=== PATIENT | female | born 1955 | race Caucasian/White ===

== ENCOUNTER 2021-07-20 00:09 | Inpatient (IN) ==
[2021-07-20] MEDS ORDERED: SODIUM CHLORIDE 0.9% 1,000 ML IV STA (00:32)
[2021-07-20] MEDS ORDERED: PANTOPRAZOLE 40 MG VIAL IV STA (00:32)
[2021-07-20] MEDS ORDERED: ONDANSETRON 4 MG/2 ML VIAL IV ONE (00:32)
[2021-07-20 01:20] LABS: Basophils # 0.1 10*3/uL (0.0-0.2); Eosinophils # 0.1 10*3/uL (0.0-0.87); Eosinophils % 1.4 % (0.00-10.9); Hematocrit 29.6 VOL% (35.7-47.0); Hemoglobin 9.4 GM/DL (12.0-16.0); Immature Granulocytes % 0.6 %; Immature Granulocytes Absolute 0.03 #; Lymphocytes # 0.5 10*3/uL (1.4-4.0); Mean Corpuscular HGB Conc 31.8 GM/DL (32-36); Mean Platelet Volume 10.7 FL (9.6-12.0); Monocytes # 0.3 10*3/uL (0.11-0.8); Monocytes % 6.8 % (1.7-12.7); Neutrophils % 81.2 % (38.7-73.9); Platelet Count 85 T/CUMM (130-400); Red Blood Count 3.29 MC/CUMM (3.8-5.5); Red Cell Distribution Width 15.8 % (9.3-17.3)
[2021-07-20 01:22] LABS: Bacteria,Urine Occasional /HPF (Few); Hyaline Casts,Urine 8 /LPF (0-3); Mucus,Urine Occasional /LPF (Occasional); RBC,Urine 5 /HPF (0-4); Squamous Epithelial Cell,Urine Occasional /HPF (0-10)
[2021-07-20 01:24] LABS: Urine Appearance Clear (Clear); Urine Color Yellow (Yellow); Urine pH 5.5 (4.5-8.0)
[2021-07-20 01:25] LABS: Bilirubin,Urine Negative (Negative); Blood, Urine Trace mg/dL (Negative); Glucose,Urine (UA) Negative (Negative); Ketones,Urine Negative (Negative); Nitrite,Urine Negative (Negative); Protein,Urine Negative (Negative); Urine Specific Gravity 1.025 (1.001-1.035); Urine Urobilinogen 0.2 eU/dL (<2.0)
[2021-07-20 01:38] LABS: Albumin 3.2 G/DL (3.4-5.0); Bilirubin,Total 1.1 MG/DL (0.20-1.00); Calcium 8.4 MG/DL (8.5-10.1); Platelet Estimate Decreased; Potassium 3.7 MMOL/L (3.5-5.1); Total Protein 6.3 G/DL (6.4-8.2)
[2021-07-20] MEDS ORDERED: OCTREOTIDE 100 MCG/ML SYRINGE IV ONE (02:30)
[2021-07-20] MEDS ORDERED: ALBUTEROL 2.5 MG/3 ML NEB RESP TX PRN (02:38)
[2021-07-20] MEDS: LACTATED RINGERS 1,000 ML IV SCH ×2 (03:25→13:51)
[2021-07-20] MEDS ORDERED: GLUCAGON 1 MG VIAL IM PRN (03:30)
[2021-07-20] MEDS: PANTOPRAZOLE INJ 200 MG in SODIUM CHLORIDE 0.9% 250 ML IV SCH (03:30)
[2021-07-20] MEDS ORDERED: DEXTROSE 10% 250 ML BAG IV PRN (03:33)
[2021-07-20] MEDS: OCTREOTIDE 500 MCG in SODIUM CHLORIDE 0.9% 100 ML IV SCH ×3 (04:30→23:40)
[2021-07-20] MEDS ORDERED: ONDANSETRON 4 MG/2 ML VIAL IV SCH (05:32)
[2021-07-20] MEDS: INSULIN LISPRO 100 UNIT/ML SUBCUT SCH ×4 (06:32→23:30)
[2021-07-20] MEDS ORDERED: LEVOTHYROXINE 100 MCG VIAL IV SCH (07:00)
[2021-07-20] MEDS ORDERED: INSULIN LISPRO 100 UNIT/ML SUBCUT SCH (07:30)
[2021-07-20 07:51] LABS: INR 1.3; PT Patient Result 14.6 SECS (10.5-12.0)
[2021-07-20 08:15] LABS: Basophils % 1.1 % (0.0-0.8); Eosinophils # 0.1 10*3/uL (0.0-0.87); Eosinophils % 1.8 % (0.00-10.9); Hematocrit 25.2 VOL% (35.7-47.0); Hemoglobin 8.1 GM/DL (12.0-16.0); Immature Granulocytes % 0.4 %; Immature Granulocytes Absolute 0.01 #; Lymphocytes # 0.6 10*3/uL (1.4-4.0); Lymphocytes % 21.6 % (21.3-54.2); Mean Corpuscular HGB Conc 32.1 GM/DL (32-36); Mean Corpuscular Volume 88.4 FL (87-102); Mean Platelet Volume 10.7 FL (9.6-12.0); Monocytes # 0.3 10*3/uL (0.11-0.8); Monocytes % 9.2 % (1.7-12.7); Neutrophils % 65.9 % (38.7-73.9); Red Blood Count 2.85 MC/CUMM (3.8-5.5); Red Cell Distribution Width 15.6 % (9.3-17.3); White Blood Count 2.7 T/CUMM (4-12)
[2021-07-20 08:20] LABS: Platelet Count 66 T/CUMM (130-400)
[2021-07-20 09:20] LABS: Lymphocytes 36 % (20-55); Total Cells Counted 100
[2021-07-20 09:21] LABS: Platelet Estimate Adequate
[2021-07-20 09:22] LABS: Microcytosis Slight; Polychromasia Slight
[2021-07-20] MEDS ORDERED: ACETAMINOPHEN 325 MG/10.15 ML UDCUP PO PRN (09:46)
[2021-07-20] MEDS: ONDANSETRON 4 MG/2 ML VIAL IV PRN ×2 (09:59→14:08)
[2021-07-20] MEDS: metroNIDAZOLE INJ 500 MG/100 ML PREMIX IV SCH ×2 (10:54→18:15)
[2021-07-20] MEDS: LEVOFLOXACIN INJ 750 MG/150 ML PREMIX IV SCH (11:56)
[2021-07-20 14:34] LABS: Hematocrit 25.3 VOL% (35.7-47.0); Hemoglobin 8.2 GM/DL (12.0-16.0)
[2021-07-20] MEDS: PROMETHAZINE 25 MG/1 ML VIAL IM PRN (15:16)
[2021-07-20] MEDS: GABAPENTIN 300 MG CAPSULE PO SCH (21:00)
[2021-07-21] MEDS: PANTOPRAZOLE INJ 200 MG in SODIUM CHLORIDE 0.9% 250 ML IV SCH (03:21)
[2021-07-21] MEDS: metroNIDAZOLE INJ 500 MG/100 ML PREMIX IV SCH ×3 (03:31→21:10)
[2021-07-21] MEDS: LACTATED RINGERS 1,000 ML IV SCH ×3 (03:31→17:50)
[2021-07-21] MEDS: LEVOTHYROXINE 100 MCG TABLET PO SCH (06:08)
[2021-07-21] MEDS: INSULIN LISPRO 100 UNIT/ML SUBCUT SCH ×3 (06:13→17:50)
[2021-07-21 06:49] LABS: Albumin 2.9 G/DL (3.4-5.0); Bilirubin,Total 0.9 MG/DL (0.20-1.00); Calcium 8.2 MG/DL (8.5-10.1); Osmolality,Calculated 289.8 MOS/KG (273-304); Potassium 3.9 MMOL/L (3.5-5.1); Total Protein 5.7 G/DL (6.4-8.2)
[2021-07-21] MEDS: OCTREOTIDE 500 MCG in SODIUM CHLORIDE 0.9% 100 ML IV SCH ×3 (10:12→21:23)
[2021-07-21] MEDS ORDERED: DULAGLUTIDE SUBCUT SCH (11:00)
[2021-07-21] MEDS: LEVOFLOXACIN INJ 750 MG/150 ML PREMIX IV SCH (13:36)
[2021-07-21] MEDS ORDERED: LIDOCAINE 2% 5 ML VIAL ONE (14:34)
[2021-07-21] MEDS ORDERED: propofoL 200 MG/20 ML VIAL IV ONE (14:34)
[2021-07-21] MEDS ORDERED: ETOMIDATE 20 MG/10 ML VIAL IV ONE (14:34)
[2021-07-21] MEDS: ONDANSETRON 4 MG/2 ML VIAL IV PRN (15:39)
[2021-07-21] MEDS: GABAPENTIN 300 MG CAPSULE PO SCH ×2 (16:07→21:11)
[2021-07-21] MEDS: CYCLOBENZAPRINE 10 MG TABLET PO PRN (16:07)
[2021-07-21] MEDS: PARoxetine 20 MG TABLET PO SCH (16:07)
[2021-07-21] MEDS: CHOLECALCIFEROL 1,000 UNIT TABLET PO SCH (16:07)
[2021-07-22] MEDS: INSULIN LISPRO 100 UNIT/ML SUBCUT SCH ×4 (00:20→18:38)
[2021-07-22] MEDS: PANTOPRAZOLE INJ 200 MG in SODIUM CHLORIDE 0.9% 250 ML IV SCH ×2 (03:00→06:28)
[2021-07-22] MEDS: metroNIDAZOLE INJ 500 MG/100 ML PREMIX IV SCH ×3 (03:49→18:38)
[2021-07-22] MEDS: OCTREOTIDE 500 MCG in SODIUM CHLORIDE 0.9% 100 ML IV SCH ×2 (05:00→06:28)
[2021-07-22] MEDS: LACTATED RINGERS 1,000 ML IV SCH (05:25)
[2021-07-22 06:01] LABS: Basophils % 0.9 % (0.0-0.8); Eosinophils # 0.1 10*3/uL (0.0-0.87); Eosinophils % 2.6 % (0.00-10.9); Hematocrit 24.5 VOL% (35.7-47.0); Hemoglobin 7.7 GM/DL (12.0-16.0); Immature Granulocytes % 0.4 %; Immature Granulocytes Absolute 0.01 #; Lymphocytes # 0.5 10*3/uL (1.4-4.0); Lymphocytes % 21.4 % (21.3-54.2); Mean Corpuscular HGB Conc 31.4 GM/DL (32-36); Mean Corpuscular Volume 88.8 FL (87-102); Mean Platelet Volume 10.3 FL (9.6-12.0); Monocytes # 0.2 10*3/uL (0.11-0.8); Monocytes % 8.1 % (1.7-12.7); Neutrophils % 66.6 % (38.7-73.9); Platelet Count 67 T/CUMM (130-400); Red Blood Count 2.76 MC/CUMM (3.8-5.5); Red Cell Distribution Width 15.5 % (9.3-17.3); White Blood Count 2.3 T/CUMM (4-12)
[2021-07-22 06:19] LABS: Albumin 2.8 G/DL (3.4-5.0); Bilirubin,Total 0.8 MG/DL (0.20-1.00); Calcium 8.2 MG/DL (8.5-10.1); Osmolality,Calculated 286.8 MOS/KG (273-304); Potassium 3.4 MMOL/L (3.5-5.1); Total Protein 5.7 G/DL (6.4-8.2)
[2021-07-22 06:21] LABS: Hypochromia Slight; Microcytosis Slight; Platelet Estimate Decreased
[2021-07-22] MEDS: LEVOTHYROXINE 100 MCG TABLET PO SCH (06:21)
[2021-07-22] MEDS: POTASSIUM BICARB EFFERVESCENT 20 MEQ TAB.EFF PER TUBE PRN ×3 (08:51→16:02)
[2021-07-22] MEDS: PARoxetine 20 MG TABLET PO SCH (08:51)
[2021-07-22] MEDS: CYCLOBENZAPRINE 10 MG TABLET PO PRN (08:52)
[2021-07-22] MEDS: PROMETHAZINE 25 MG/1 ML VIAL IM PRN (08:52)
[2021-07-22] MEDS: GABAPENTIN 300 MG CAPSULE PO SCH ×2 (08:52→21:44)
[2021-07-22] MEDS: CHOLECALCIFEROL 1,000 UNIT TABLET PO SCH (08:55)
[2021-07-22] MEDS ORDERED: SODIUM CHLORIDE 0.9% 1,000 ML IV PRN (09:03)
[2021-07-22] MEDS: LEVOFLOXACIN INJ 750 MG/150 ML PREMIX IV SCH (11:56)
[2021-07-22 15:37] VITALS: BP 103/65
[2021-07-22] MEDS: PANTOPRAZOLE 40 MG VIAL IV SCH (21:44)
[2021-07-23] MEDS: INSULIN LISPRO 100 UNIT/ML SUBCUT SCH ×3 (00:21→11:30)
[2021-07-23] MEDS: metroNIDAZOLE INJ 500 MG/100 ML PREMIX IV SCH (03:50)
[2021-07-23 04:49] LABS: Calcium 8.3 MG/DL (8.5-10.1); Osmolality,Calculated 284.8 MOS/KG (273-304); Potassium 3.9 MMOL/L (3.5-5.1)
[2021-07-23 05:15] LABS: Basophils % 0.4 % (0.0-0.8); Eosinophils # 0.1 10*3/uL (0.0-0.87); Eosinophils % 3.3 % (0.00-10.9); Hematocrit 28.3 VOL% (35.7-47.0); Hemoglobin 9.2 GM/DL (12.0-16.0); Immature Granulocytes % 0.4 %; Immature Granulocytes Absolute 0.01 #; Lymphocytes # 0.5 10*3/uL (1.4-4.0); Lymphocytes % 19.3 % (21.3-54.2); Mean Corpuscular HGB Conc 32.5 GM/DL (32-36); Mean Corpuscular Volume 88.7 FL (87-102); Monocytes # 0.2 10*3/uL (0.11-0.8); Monocytes % 8.1 % (1.7-12.7); Neutrophils % 68.5 % (38.7-73.9); Platelet Count 68 T/CUMM (130-400); Red Blood Count 3.19 MC/CUMM (3.8-5.5); Red Cell Distribution Width 15.1 % (9.3-17.3); White Blood Count 2.7 T/CUMM (4-12)
[2021-07-23 05:18] LABS: Hypochromia Slight; Microcytosis Slight; Platelet Estimate Decreased
[2021-07-23] MEDS: LEVOTHYROXINE 100 MCG TABLET PO SCH (06:22)
[2021-07-23] MEDS: PARoxetine 20 MG TABLET PO SCH (08:46)
[2021-07-23] MEDS: GABAPENTIN 300 MG CAPSULE PO SCH (08:46)
[2021-07-23] MEDS: PANTOPRAZOLE 40 MG VIAL IV SCH (08:46)
[2021-07-23] MEDS: CHOLECALCIFEROL 1,000 UNIT TABLET PO SCH (08:46)
== END 2021-07-23 02:30 | disposition home or self-care (01) | DRG 432 ==
LOC: N.ED 00:09 → N.EDINP 02:37 → SUATTDRO 02:37 → N.CC 03:43
PROVIDERS: ADMIT Family Medicine; ATTEND Internal Medicine
PROC: EGDWEBL (ICD-10-PCS; 2021-07-21 12:20)

== ENCOUNTER 2021-07-31 01:05 | Inpatient (IN) ==
[2021-07-31] MEDS ORDERED: PANTOPRAZOLE 40 MG VIAL IV STA (01:25)
[2021-07-31] MEDS ORDERED: SODIUM CHLORIDE 0.9% 1,000 ML IV STA (01:25)
[2021-07-31] MEDS ORDERED: OCTREOTIDE 100 MCG/ML SYRINGE IV STA (01:40)
[2021-07-31 01:42] LABS: Basophils % 0.5 % (0.0-0.8); Eosinophils # 0.1 10*3/uL (0.0-0.87); Eosinophils % 1.9 % (0.00-10.9); Hematocrit 24.2 VOL% (35.7-47.0); Hemoglobin 7.7 GM/DL (12.0-16.0); Immature Granulocytes % 0.4 %; Immature Granulocytes Absolute 0.03 #; Lymphocytes # 0.7 10*3/uL (1.4-4.0); Mean Corpuscular HGB Conc 31.8 GM/DL (32-36); Mean Corpuscular Volume 89.6 FL (87-102); Mean Platelet Volume 11.1 FL (9.6-12.0); Monocytes # 0.7 10*3/uL (0.11-0.8); Monocytes % 9.5 % (1.7-12.7); Neutrophils % 78.7 % (38.7-73.9); Platelet Count 118 T/CUMM (130-400); Red Cell Distribution Width 15.6 % (9.3-17.3); White Blood Count 7.5 T/CUMM (4-12)
[2021-07-31 01:57] LABS: Albumin 2.8 G/DL (3.4-5.0); Bilirubin,Total 0.6 MG/DL (0.20-1.00); Calcium 7.8 MG/DL (8.5-10.1); Osmolality,Calculated 287.1 MOS/KG (273-304); Potassium 3.6 MMOL/L (3.5-5.1); Total Protein 5.7 G/DL (6.4-8.2)
[2021-07-31] MEDS ORDERED: SODIUM CHLORIDE 0.9% 1,000 ML IV PRN ×4 (01:57→17:36)
[2021-07-31] MEDS ORDERED: diphenhydrAMINE 50 MG/1 ML VIAL IV PRN (01:57)
[2021-07-31] MEDS ORDERED: FUROSEMIDE 40 MG/4 ML VIAL IV PRN (02:01)
[2021-07-31] MEDS ORDERED: ALBUTEROL 2.5 MG/3 ML NEB RESP TX PRN (02:20)
[2021-07-31] MEDS ORDERED: ONDANSETRON 4 MG/2 ML VIAL IV PRN (02:20)
[2021-07-31] MEDS ORDERED: NOREPINEPHRINE 8 MG in SODIUM CHLORIDE 0.9% 242 ML IV PRN (02:20)
[2021-07-31 03:06] LABS: PT Patient Result 11.5 SECS (10.5-12.0)
[2021-07-31] MEDS ORDERED: GLUCAGON 1 MG VIAL IM PRN (03:10)
[2021-07-31] MEDS: OCTREOTIDE 500 MCG in SODIUM CHLORIDE 0.9% 100 ML IV SCH ×2 (03:20→18:08)
[2021-07-31] MEDS: SODIUM CHLORIDE 0.9% 1,000 ML IV SCH ×4 (03:21→23:05)
[2021-07-31] MEDS ORDERED: DEXTROSE 10% 250 ML BAG IV PRN (03:37)
[2021-07-31] MEDS: PANTOPRAZOLE INJ 200 MG in SODIUM CHLORIDE 0.9% 250 ML IV SCH (04:31)
[2021-07-31 04:39] LABS: Partial Thromboplastin Time 22.8 SECS (23.8-32.1)
[2021-07-31] MEDS ORDERED: INSULIN LISPRO 100 UNIT/ML SUBCUT SCH (06:00)
[2021-07-31] MEDS ORDERED: [UNRECOGNIZED DRUG - OTHER] INTRAVARIC ONE (08:16)
[2021-07-31] MEDS: LACTATED RINGERS 1,000 ML IV SCH (11:21)
[2021-07-31 11:24] LABS: Hematocrit 30.3 VOL% (35.7-47.0); Hemoglobin 9.9 GM/DL (12.0-16.0)
[2021-07-31] MEDS: INSULIN LISPRO 100 UNIT/ML SUBCUT SCH ×3 (11:33→20:27)
[2021-07-31] MEDS ORDERED: LIDOCAINE 2% 5 ML VIAL ONE (13:36)
[2021-07-31] MEDS ORDERED: propofoL 200 MG/20 ML VIAL IV ONE ×2 (13:36→13:55)
[2021-07-31] MEDS ORDERED: MIDAZOLAM 2 MG/2 ML VIAL ONE ×3 (14:22→18:07)
[2021-07-31 14:43] LABS: ABG Base Excess -8.4 MMOL/L (-2.5-2.5); ABG HCO3 17.6 MMOL/L (20-26); ABG PCO2 56.1 MM HG (35-48); ABG TCO2 19.5 MMOL/L (23-27); Glucose Heart Surgery 233 MG/DL (74-106); Hematocrit Heart Surgery 26.5 PERCENT (37-47); Hemoglobin Heart Surgery 8.5 G/DL (12.0-16.0); Ionized Calcium Arterial 1.29 MMOL/L (1.21-1.46); PCO2 Patient Temp Arterial 56.1 MMHG; PH Patient Temp Arterial 7.167; Patient Temperature 37 CELCIUS; Potassium Heart/CVR 3.3 MMOL/L (3.5-5.1); Sodium Heart/CVR 142 MMOL/L (135-145)
[2021-07-31] MEDS ORDERED: ROCURONIUM 50 MG/5 ML VIAL IV ONE ×2 (14:44→18:06)
[2021-07-31] MEDS ORDERED: SUCCINYLCHOLINE 200 MG/10 ML VIAL ONE (14:44)
[2021-07-31] MEDS ORDERED: EPINEPHrine 1 MG/ML VIAL ONE (14:44)
[2021-07-31] MEDS ORDERED: SODIUM CHLORIDE 0.9% 100 ML IV ONE (14:44)
[2021-07-31] MEDS ORDERED: CALCIUM CHLORIDE 1,000 MG/10 ML VIAL IV ONE ×2 (14:44→15:00)
[2021-07-31] MEDS ORDERED: SEVOFLURANE 1 UNIT/15 MINUTE INH ONE (14:44)
[2021-07-31] MEDS ORDERED: PHENYLEPHRINE 1 MG/10 ML SYRINGE IV ONE (14:44)
[2021-07-31 14:46] LABS: ABG PH 7.167 (7.35-7.45)
[2021-07-31 14:53] LABS: Basophils % 0.4 % (0.0-0.8); Eosinophils # 0.1 10*3/uL (0.0-0.87); Eosinophils % 1.5 % (0.00-10.9); Hemoglobin 8.4 GM/DL (12.0-16.0); Immature Granulocytes % 0.7 %; Immature Granulocytes Absolute 0.05 #; Lymphocytes # 2.2 10*3/uL (1.4-4.0); Lymphocytes % 32.4 % (21.3-54.2); Mean Corpuscular HGB Conc 31.1 GM/DL (32-36); Mean Corpuscular Volume 93.1 FL (87-102); Mean Platelet Volume 10.9 FL (9.6-12.0); Monocytes # 0.5 10*3/uL (0.11-0.8); Monocytes % 7.5 % (1.7-12.7); Neutrophils % 57.5 % (38.7-73.9); Platelet Count 97 T/CUMM (130-400); Red Cell Distribution Width 15.4 % (9.3-17.3); White Blood Count 6.7 T/CUMM (4-12)
[2021-07-31] MEDS ORDERED: HEPARIN/NACL 0.9% 2 UNITS/ML 2,000 UNIT/1,000 ML BAG IV ONE (14:54)
[2021-07-31 14:58] LABS: INR 1.4; PT Patient Result 15.1 SECS (10.5-12.0)
[2021-07-31] MEDS ORDERED: SODIUM BICARBONATE 50 MEQ/50 ML VIAL IV ONE (15:00)
[2021-07-31] MEDS ORDERED: PHENYLEPHRINE DRIP 0 MG/0 ML PREMIX IV ONE (15:01)
[2021-07-31] MEDS ORDERED: TRANEXAMIC ACID 1,000 MG/10 ML VIAL ONE ×2 (15:11→15:15)
[2021-07-31 15:14] LABS: Calcium 8.4 MG/DL (8.5-10.1); Potassium 3.6 MMOL/L (3.5-5.1)
[2021-07-31 15:16] LABS: Albumin 1.6 G/DL (3.4-5.0); Bilirubin,Total 0.4 MG/DL (0.20-1.00); Calcium 9.7 MG/DL (8.5-10.1); Osmolality,Calculated 303.1 MOS/KG (273-304); Potassium 3.7 MMOL/L (3.5-5.1); Total Protein 3.3 G/DL (6.4-8.2)
[2021-07-31] MEDS ORDERED: LEVOFLOXACIN INJ 500 MG/100 ML PREMIX IV ONE (15:42)
[2021-07-31] MEDS ORDERED: FUROSEMIDE 20 MG/2 ML VIAL ONE (16:23)
[2021-07-31 17:47] LABS: Bilirubin,Urine Negative (Negative); Blood, Urine Negative (Negative); Glucose,Urine (UA) Negative (Negative); Ketones,Urine Negative (Negative); Nitrite,Urine Negative (Negative); Protein,Urine Negative (Negative); Urine Appearance Clear (Clear); Urine Color Yellow (Yellow); Urine Specific Gravity 1.025 (1.001-1.035); Urine Urobilinogen 0.2 eU/dL (<2.0); Urine pH 5.5 (4.5-8.0)
[2021-07-31 17:48] LABS: ABG Base Excess -1.7 MMOL/L (-2.5-2.5); ABG Oxygen Saturation 99.5 % (95-100); ABG PCO2 45.7 MM HG (35-48); ABG PH 7.335 (7.35-7.45)
[2021-07-31 17:49] LABS: Hyaline Casts,Urine 7 /LPF (0-3); Mucus,Urine Occasional /LPF (Occasional); RBC,Urine 1 /HPF (0-4); Squamous Epithelial Cell,Urine Occasional /HPF (0-10)
[2021-07-31 17:50] LABS: Basophils % 0.2 % (0.0-0.8); Eosinophils % 0.5 % (0.00-10.9); Hematocrit 33.7 VOL% (35.7-47.0); Hemoglobin 11.1 GM/DL (12.0-16.0); Immature Granulocytes % 0.7 %; Immature Granulocytes Absolute 0.03 #; Lymphocytes # 0.2 10*3/uL (1.4-4.0); Lymphocytes % 4.9 % (21.3-54.2); Mean Corpuscular HGB Conc 32.9 GM/DL (32-36); Mean Corpuscular Volume 88.5 FL (87-102); Mean Platelet Volume 10.5 FL (9.6-12.0); Monocytes # 0.2 10*3/uL (0.11-0.8); Monocytes % 4.4 % (1.7-12.7); Neutrophils % 89.3 % (38.7-73.9); Platelet Count 82 T/CUMM (130-400); Red Blood Count 3.81 MC/CUMM (3.8-5.5); White Blood Count 4.3 T/CUMM (4-12)
[2021-07-31] MEDS ORDERED: MIDAZOLAM 10 MG/2 ML VIAL ONE (18:07)
[2021-07-31] MEDS ORDERED: fentaNYL 100 MCG/2 ML VIAL ONE ×2 (18:07)
[2021-07-31 18:11] LABS: Band Neutrophils 10 % (0-10); Lymphocytes 1 % (20-55); Total Cells Counted 100
[2021-07-31 18:12] LABS: Platelet Estimate Adequate
[2021-07-31 18:15] LABS: Albumin 2.5 G/DL (3.4-5.0); Bilirubin,Total 1.2 MG/DL (0.20-1.00); Calcium 7.6 MG/DL (8.5-10.1); Osmolality,Calculated 297.4 MOS/KG (273-304); Potassium 4.7 MMOL/L (3.5-5.1); Total Protein 4.8 G/DL (6.4-8.2)
[2021-07-31] MEDS ORDERED: MAGNESIUM SULF RIDER 4 GM/100 ML PREMIX IV PRN (18:15)
[2021-07-31 18:18] LABS: INR 1.2; PT Patient Result 12.8 SECS (10.5-12.0); Partial Thromboplastin Time 27.9 SECS (23.8-32.1)
[2021-07-31] MEDS: MAGNESIUM SULF RIDER 2 GM/50 ML PREMIX IV PRN (18:20)
[2021-07-31] MEDS ORDERED: CALCIUM GLUCONATE RIDER 2,000 MG/100 ML PREMIX IV ONE (18:47)
[2021-07-31] MEDS ORDERED: CALCIUM GLUCONATE RIDER 1,000 MG/50 ML PREMIX IV ONE (18:49)
[2021-07-31 21:44] LABS: Hematocrit 36.8 VOL% (35.7-47.0); Hemoglobin 12.2 GM/DL (12.0-16.0)
[2021-08-01] MEDS: OCTREOTIDE 500 MCG in SODIUM CHLORIDE 0.9% 100 ML IV SCH ×3 (03:15→13:15)
[2021-08-01 03:22] LABS: ABG Base Excess 1.6 MMOL/L (-2.5-2.5); ABG HCO3 25.9 MMOL/L (20-26); ABG Oxygen Saturation 99.3 % (95-100); ABG PH 7.393 (7.35-7.45); ABG TCO2 24.1 MMOL/L (23-27)
[2021-08-01 03:36] LABS: Basophils % 0.1 % (0.0-0.8); Eosinophils % 0.1 % (0.00-10.9); Hematocrit 34.1 VOL% (35.7-47.0); Hemoglobin 11.2 GM/DL (12.0-16.0); Immature Granulocytes % 0.6 %; Immature Granulocytes Absolute 0.05 #; Lymphocytes # 0.3 10*3/uL (1.4-4.0); Lymphocytes % 3.5 % (21.3-54.2); Mean Corpuscular HGB Conc 32.8 GM/DL (32-36); Mean Corpuscular Volume 88.6 FL (87-102); Mean Platelet Volume 10.4 FL (9.6-12.0); Monocytes # 0.5 10*3/uL (0.11-0.8); Monocytes % 5.5 % (1.7-12.7); Neutrophils % 90.2 % (38.7-73.9); Platelet Count 85 T/CUMM (130-400); Red Blood Count 3.85 MC/CUMM (3.8-5.5); Red Cell Distribution Width 15.5 % (9.3-17.3); White Blood Count 8.5 T/CUMM (4-12)
[2021-08-01 03:44] LABS: Calcium 7.1 MG/DL (8.5-10.1); Osmolality,Calculated 298.3 MOS/KG (273-304); Potassium 4.1 MMOL/L (3.5-5.1)
[2021-08-01 03:45] LABS: Albumin 2.4 G/DL (3.4-5.0); Bilirubin,Total 1.7 MG/DL (0.20-1.00); Calcium 7.4 MG/DL (8.5-10.1); Osmolality,Calculated 295.6 MOS/KG (273-304); Total Protein 4.8 G/DL (6.4-8.2)
[2021-08-01 03:56] LABS: Band Neutrophils 5 % (0-10); Lymphocytes 7 % (20-55); Total Cells Counted 100
[2021-08-01 04:04] LABS: Microcytosis Slight; Platelet Estimate Decreased
[2021-08-01] MEDS: PANTOPRAZOLE INJ 200 MG in SODIUM CHLORIDE 0.9% 250 ML IV SCH (05:25)
[2021-08-01 05:49] LABS: INR 1.2
[2021-08-01] MEDS: SODIUM CHLORIDE 0.9% 1,000 ML IV SCH ×2 (06:10→18:50)
[2021-08-01] MEDS ORDERED: FUROSEMIDE 40 MG/4 ML VIAL IV ONE (08:25)
[2021-08-01] MEDS: LACTATED RINGERS 1,000 ML IV SCH (09:45)
[2021-08-01] MEDS: INSULIN LISPRO 100 UNIT/ML SUBCUT SCH ×3 (12:22→23:22)
[2021-08-01 12:39] LABS: Hematocrit 34.7 VOL% (35.7-47.0); Hemoglobin 11.5 GM/DL (12.0-16.0)
[2021-08-01 18:44] LABS: Hematocrit 31.2 VOL% (35.7-47.0); Hemoglobin 10.3 GM/DL (12.0-16.0)
[2021-08-01] MEDS: FUROSEMIDE 40 MG/4 ML VIAL IV SCH (21:41)
[2021-08-02 00:26] LABS: Hematocrit 31.9 VOL% (35.7-47.0); Hemoglobin 10.6 GM/DL (12.0-16.0)
[2021-08-02] MEDS: OCTREOTIDE 500 MCG in SODIUM CHLORIDE 0.9% 100 ML IV SCH ×4 (02:45→23:39)
[2021-08-02] MEDS: PANTOPRAZOLE INJ 200 MG in SODIUM CHLORIDE 0.9% 250 ML IV SCH ×2 (03:00→09:40)
[2021-08-02 03:23] LABS: Basophils % 0.4 % (0.0-0.8); Eosinophils # 0.1 10*3/uL (0.0-0.87); Eosinophils % 1.2 % (0.00-10.9); Hematocrit 30.9 VOL% (35.7-47.0); Hemoglobin 10.2 GM/DL (12.0-16.0); Immature Granulocytes % 0.7 %; Immature Granulocytes Absolute 0.05 #; Lymphocytes # 0.5 10*3/uL (1.4-4.0); Lymphocytes % 7.4 % (21.3-54.2); Mean Corpuscular Volume 88.5 FL (87-102); Mean Platelet Volume 10.2 FL (9.6-12.0); Monocytes # 0.5 10*3/uL (0.11-0.8); Monocytes % 7.2 % (1.7-12.7); Neutrophils % 83.1 % (38.7-73.9); Platelet Count 67 T/CUMM (130-400); Red Blood Count 3.49 MC/CUMM (3.8-5.5); Red Cell Distribution Width 15.9 % (9.3-17.3); White Blood Count 6.8 T/CUMM (4-12)
[2021-08-02 03:38] LABS: Albumin 2.5 G/DL (3.4-5.0); Bilirubin,Total 1.7 MG/DL (0.20-1.00); Calcium 7.3 MG/DL (8.5-10.1); Osmolality,Calculated 297.4 MOS/KG (273-304); Potassium 3.3 MMOL/L (3.5-5.1); Total Protein 4.9 G/DL (6.4-8.2)
[2021-08-02 03:45] LABS: Platelet Estimate Decreased
[2021-08-02 03:50] LABS: Calcium 7.3 MG/DL (8.5-10.1); Osmolality,Calculated 297.3 MOS/KG (273-304); Potassium 3.3 MMOL/L (3.5-5.1)
[2021-08-02] MEDS: POTASSIUM CHLORIDE RIDER 20 MEQ/100 ML PREMIX IV PRN ×2 (04:48→06:44)
[2021-08-02] MEDS: INSULIN LISPRO 100 UNIT/ML SUBCUT SCH ×4 (05:34→23:55)
[2021-08-02 06:00] LABS: ABG Base Excess 6.3 MMOL/L (-2.5-2.5); ABG HCO3 30.2 MMOL/L (20-26); ABG Oxygen Saturation 98.6 % (95-100); ABG PCO2 41.3 MM HG (35-48); ABG PH 7.476 (7.35-7.45); ABG TCO2 27.6 MMOL/L (23-27)
[2021-08-02] MEDS: MAGNESIUM SULF RIDER 2 GM/50 ML PREMIX IV PRN (06:02)
[2021-08-02] MEDS: FUROSEMIDE 40 MG/4 ML VIAL IV SCH (08:00)
[2021-08-02] MEDS ORDERED: ALBUTEROL/IPRATROPIUM 3 ML NEB RESP TX ONE (08:50)
[2021-08-02] MEDS: LACTATED RINGERS 1,000 ML IV SCH (10:54)
[2021-08-02] MEDS: SODIUM CHLORIDE 0.9% 1,000 ML IV SCH (11:19)
[2021-08-02 11:51] LABS: Hematocrit 32.2 VOL% (35.7-47.0); Hemoglobin 10.4 GM/DL (12.0-16.0)
[2021-08-02] MEDS ORDERED: FUROSEMIDE 40 MG/4 ML VIAL IV ONE (17:15)
[2021-08-02 17:20] LABS: ABG Base Excess 6.4 MMOL/L (-2.5-2.5); ABG HCO3 30.2 MMOL/L (20-26); ABG Oxygen Saturation 94.3 % (95-100); ABG PCO2 47.8 MM HG (35-48); ABG PO2 71.9 MM HG (80-95); ABG TCO2 28.9 MMOL/L (23-27)
[2021-08-02] MEDS: LACTULOSE 320 GM/480 ML BOTTLE RECTAL SCH (20:12)
[2021-08-02] MEDS: VITAMIN E 400 UNIT CAPSULE PO SCH (20:32)
[2021-08-02 23:10] LABS: Hematocrit 29.4 VOL% (35.7-47.0); Hemoglobin 9.6 GM/DL (12.0-16.0)
[2021-08-03] MEDS: OCTREOTIDE 500 MCG in SODIUM CHLORIDE 0.9% 100 ML IV SCH (01:00)
[2021-08-03] MEDS: LACTULOSE 320 GM/480 ML BOTTLE RECTAL SCH ×4 (01:50→20:09)
[2021-08-03] MEDS: PANTOPRAZOLE INJ 200 MG in SODIUM CHLORIDE 0.9% 250 ML IV SCH ×2 (03:00→10:55)
[2021-08-03 04:09] LABS: Basophils % 0.2 % (0.0-0.8); Eosinophils % 0.4 % (0.00-10.9); Hematocrit 29.6 VOL% (35.7-47.0); Hemoglobin 9.6 GM/DL (12.0-16.0); Immature Granulocytes % 0.7 %; Immature Granulocytes Absolute 0.04 #; Lymphocytes # 0.4 10*3/uL (1.4-4.0); Mean Corpuscular HGB Conc 32.4 GM/DL (32-36); Mean Corpuscular Volume 90.2 FL (87-102); Mean Platelet Volume 10.9 FL (9.6-12.0); Monocytes # 0.3 10*3/uL (0.11-0.8); Monocytes % 5.3 % (1.7-12.7); Neutrophils % 86.4 % (38.7-73.9); Platelet Count 61 T/CUMM (130-400); Red Blood Count 3.28 MC/CUMM (3.8-5.5); Red Cell Distribution Width 15.6 % (9.3-17.3); White Blood Count 5.6 T/CUMM (4-12)
[2021-08-03 04:13] LABS: Arterial Base Excess iSTAT 8 MMOL/L (-2.5-2.5); Arterial Bicarbonate iSTAT 32.7 MMOL/L (20-26); Arterial O2 Saturation iSTAT 85 % (95-100); Arterial PCO2 iSTAT 48 MM HG (35-48); Arterial PO2 iSTAT 49 MM HG (80-95); Arterial Total CO2 iSTAT 34 MMO/L (23-27); Arterial pH iSTAT 7.443 (7.35-7.45)
[2021-08-03 04:26] LABS: Calcium 7.7 MG/DL (8.5-10.1); Osmolality,Calculated 306.7 MOS/KG (273-304); Potassium 3.2 MMOL/L (3.5-5.1)
[2021-08-03 04:30] LABS: Platelet Estimate Decreased
[2021-08-03] MEDS: POTASSIUM CHLORIDE RIDER 20 MEQ/100 ML PREMIX IV PRN ×2 (05:28→08:31)
[2021-08-03] MEDS: INSULIN LISPRO 100 UNIT/ML SUBCUT SCH ×3 (05:58→18:05)
[2021-08-03] MEDS ORDERED: FUROSEMIDE 40 MG/4 ML VIAL IM SCH (08:00)
[2021-08-03] MEDS: SODIUM CHLORIDE 0.9% 1,000 ML IV SCH ×2 (08:30→17:27)
[2021-08-03] MEDS: ALBUTEROL/IPRATROPIUM 3 ML NEB RESP TX SCH ×3 (08:30→20:11)
[2021-08-03] MEDS: PIPERACILLIN/TAZOBACTAM 3,375 MG in SODIUM CHLORIDE 0.9% 100 ML IV SCH ×2 (08:32→17:27)
[2021-08-03] MEDS: POTASSIUM CHLORIDE RIDER 10 MEQ/100 ML PREMIX IV SCH ×2 (08:32→09:40)
[2021-08-03] MEDS: VITAMIN E 400 UNIT CAPSULE PO SCH ×2 (08:41→20:09)
[2021-08-03] MEDS: LACTATED RINGERS 1,000 ML IV SCH (08:41)
[2021-08-03] MEDS ORDERED: methylPREDNISolone SOD SUC 40 MG/1 ML VIAL IV SCH (09:00)
[2021-08-03] MEDS ORDERED: FUROSEMIDE 40 MG/4 ML VIAL IV SCH (09:00)
[2021-08-03 09:31] LABS: Hematocrit 33.5 VOL% (35.7-47.0); Hemoglobin 10.9 GM/DL (12.0-16.0)
[2021-08-03] MEDS: methylPREDNISolone SOD SUC 40 MG/1 ML VIAL IV SCH ×2 (09:40→20:09)
[2021-08-03 17:27] LABS: Arterial Base Excess iSTAT 9 MMOL/L (-2.5-2.5); Arterial Bicarbonate iSTAT 34.1 MMOL/L (20-26); Arterial O2 Saturation iSTAT 94 % (95-100); Arterial PCO2 iSTAT 49 MM HG (35-48); Arterial PO2 iSTAT 67 MM HG (80-95); Arterial Total CO2 iSTAT 36 MMO/L (23-27); Arterial pH iSTAT 7.452 (7.35-7.45)
[2021-08-03 19:33] LABS: Hematocrit 29.6 VOL% (35.7-47.0); Hemoglobin 9.5 GM/DL (12.0-16.0)
[2021-08-04] MEDS: ALBUTEROL/IPRATROPIUM 3 ML NEB RESP TX SCH ×4 (00:45→20:13)
[2021-08-04] MEDS: INSULIN LISPRO 100 UNIT/ML SUBCUT SCH ×4 (00:48→18:43)
[2021-08-04] MEDS: PIPERACILLIN/TAZOBACTAM 3,375 MG in SODIUM CHLORIDE 0.9% 100 ML IV SCH (00:48)
[2021-08-04] MEDS: LACTULOSE 320 GM/480 ML BOTTLE RECTAL SCH ×3 (02:22→21:03)
[2021-08-04] MEDS: PANTOPRAZOLE INJ 200 MG in SODIUM CHLORIDE 0.9% 250 ML IV SCH (03:00)
[2021-08-04 04:59] LABS: Basophils % 0.2 % (0.0-0.8); Hemoglobin 9.7 GM/DL (12.0-16.0); Immature Granulocytes % 1.5 %; Immature Granulocytes Absolute 0.09 #; Lymphocytes # 0.3 10*3/uL (1.4-4.0); Lymphocytes % 5.1 % (21.3-54.2); Mean Corpuscular HGB Conc 31.3 GM/DL (32-36); Mean Corpuscular Volume 93.9 FL (87-102); Mean Platelet Volume 10.8 FL (9.6-12.0); Monocytes # 0.2 10*3/uL (0.11-0.8); Monocytes % 4.1 % (1.7-12.7); Neutrophils % 89.1 % (38.7-73.9); Platelet Count 70 T/CUMM (130-400); Red Cell Distribution Width 15.7 % (9.3-17.3); White Blood Count 5.9 T/CUMM (4-12)
[2021-08-04 05:16] LABS: Potassium 2.9 MMOL/L (3.5-5.1)
[2021-08-04 05:23] LABS: Osmolality,Calculated 319.9 MOS/KG (273-304)
[2021-08-04] MEDS: POTASSIUM CHLORIDE RIDER 20 MEQ/100 ML PREMIX IV PRN ×3 (05:40→17:22)
[2021-08-04] MEDS ORDERED: CEFEPIME 1,000 MG in SODIUM CHLORIDE 0.9% 100 ML IV SCH (08:00)
[2021-08-04] MEDS: PANTOPRAZOLE 40 MG VIAL IV SCH ×2 (09:01→20:35)
[2021-08-04] MEDS: CEFEPIME 1,000 MG in SODIUM CHLORIDE 0.9% 100 ML IV SCH ×3 (09:01→20:34)
[2021-08-04] MEDS: SODIUM CHLOR 0.45% KCL 20 MEQ 20 MEQ/1,000 ML BAG IV SCH (09:01)
[2021-08-04] MEDS: methylPREDNISolone SOD SUC 40 MG/1 ML VIAL IV SCH ×2 (09:12→20:35)
[2021-08-04] MEDS: VITAMIN E 400 UNIT CAPSULE PO SCH ×2 (09:14→21:00)
[2021-08-04 14:02] LABS: Calcium 8.1 MG/DL (8.5-10.1); Osmolality,Calculated 321.7 MOS/KG (273-304); Potassium 3.4 MMOL/L (3.5-5.1)
[2021-08-04] MEDS: ZIPRASIDONE 20 MG/1 ML VIAL IM PRN (17:20)
[2021-08-04] MEDS: SODIUM CHLORIDE 0.9% 1,000 ML IV SCH (18:58)
[2021-08-05] MEDS: ALBUTEROL/IPRATROPIUM 3 ML NEB RESP TX SCH ×4 (00:15→19:56)
[2021-08-05] MEDS: POTASSIUM CHLORIDE RIDER 10 MEQ/100 ML PREMIX IV PRN (00:32)
[2021-08-05] MEDS: INSULIN LISPRO 100 UNIT/ML SUBCUT SCH ×4 (00:37→18:00)
[2021-08-05] MEDS: CEFEPIME 1,000 MG in SODIUM CHLORIDE 0.9% 100 ML IV SCH ×4 (02:45→21:03)
[2021-08-05] MEDS: SODIUM CHLOR 0.45% KCL 20 MEQ 20 MEQ/1,000 ML BAG IV SCH ×2 (04:00→07:40)
[2021-08-05] MEDS: ZIPRASIDONE 20 MG/1 ML VIAL IM PRN ×2 (04:38→15:30)
[2021-08-05 06:07] LABS: Basophils % 0.2 % (0.0-0.8); Hematocrit 33.1 VOL% (35.7-47.0); Hemoglobin 10.1 GM/DL (12.0-16.0); Immature Granulocytes % 1.5 %; Immature Granulocytes Absolute 0.07 #; Lymphocytes # 0.2 10*3/uL (1.4-4.0); Mean Corpuscular HGB Conc 30.5 GM/DL (32-36); Mean Corpuscular Volume 96.2 FL (87-102); Mean Platelet Volume 11.2 FL (9.6-12.0); Monocytes # 0.2 10*3/uL (0.11-0.8); Neutrophils % 88.3 % (38.7-73.9); Platelet Count 69 T/CUMM (130-400); Red Blood Count 3.44 MC/CUMM (3.8-5.5); Red Cell Distribution Width 16.3 % (9.3-17.3); White Blood Count 4.6 T/CUMM (4-12)
[2021-08-05 06:15] LABS: Albumin 2.4 G/DL (3.4-5.0); Bilirubin,Total 1.8 MG/DL (0.20-1.00); Calcium 8.5 MG/DL (8.5-10.1); Osmolality,Calculated 321.7 MOS/KG (273-304); Potassium 3.9 MMOL/L (3.5-5.1); Total Protein 5.4 G/DL (6.4-8.2)
[2021-08-05 06:34] LABS: Platelet Estimate Decreased
[2021-08-05] MEDS: POTASSIUM CHLORIDE RIDER 20 MEQ/100 ML PREMIX IV PRN (07:39)
[2021-08-05] MEDS: methylPREDNISolone SOD SUC 40 MG/1 ML VIAL IV SCH ×2 (08:59→21:04)
[2021-08-05] MEDS: PANTOPRAZOLE 40 MG VIAL IV SCH ×2 (09:00→21:04)
[2021-08-05] MEDS: VITAMIN E 400 UNIT CAPSULE PO SCH ×2 (09:00→21:05)
[2021-08-05] MEDS: LACTULOSE 320 GM/480 ML BOTTLE RECTAL SCH ×2 (09:01→21:05)
[2021-08-06] MEDS: SODIUM CHLOR 0.45% KCL 20 MEQ 20 MEQ/1,000 ML BAG IV SCH
[2021-08-06] MEDS: ZIPRASIDONE 20 MG/1 ML VIAL IM PRN (00:59)
[2021-08-06] MEDS: ALBUTEROL/IPRATROPIUM 3 ML NEB RESP TX SCH ×4 (01:30→19:01)
[2021-08-06] MEDS: INSULIN LISPRO 100 UNIT/ML SUBCUT SCH ×5 (01:33→19:04)
[2021-08-06] MEDS: CEFEPIME 1,000 MG in SODIUM CHLORIDE 0.9% 100 ML IV SCH ×4 (02:59→20:40)
[2021-08-06] MEDS ORDERED: HALOPERIDOL 5 MG/ML AMP IM ONE (03:48)
[2021-08-06 05:28] LABS: Hematocrit 33.2 VOL% (35.7-47.0); Lymphocytes # 0.2 10*3/uL (1.4-4.0); Mean Corpuscular HGB Conc 30.1 GM/DL (32-36); Mean Corpuscular Volume 96.5 FL (87-102); Mean Platelet Volume 10.4 FL (9.6-12.0); Monocytes # 0.2 10*3/uL (0.11-0.8); Monocytes % 5.3 % (1.7-12.7); NRBC # 0.02 10*3/uL; Neutrophils % 85.7 % (38.7-73.9); Platelet Count 57 T/CUMM (130-400); Red Blood Count 3.44 MC/CUMM (3.8-5.5); Red Cell Distribution Width 16.4 % (9.3-17.3)
[2021-08-06 05:50] LABS: Band Neutrophils 1 % (0-10); Hypochromia Slight; Lymphocytes 1 % (20-55); Platelet Estimate Decreased; Total Cells Counted 100
[2021-08-06 05:59] LABS: Albumin 2.4 G/DL (3.4-5.0); Bilirubin,Total 1.7 MG/DL (0.20-1.00); Osmolality,Calculated 322.6 MOS/KG (273-304); Total Protein 5.3 G/DL (6.4-8.2)
[2021-08-06] MEDS: DEXTROSE 5% 1,000 ML IV SCH ×2 (08:46→19:03)
[2021-08-06] MEDS: methylPREDNISolone SOD SUC 40 MG/1 ML VIAL IV SCH (08:47)
[2021-08-06] MEDS: PANTOPRAZOLE 40 MG VIAL IV SCH ×2 (08:47→20:41)
[2021-08-06] MEDS: VITAMIN E 400 UNIT CAPSULE PO SCH ×2 (08:47→20:40)
[2021-08-06] MEDS: LACTULOSE 320 GM/480 ML BOTTLE RECTAL SCH (10:30)
[2021-08-06] MEDS ORDERED: LACTULOSE 20 GM/30 ML UDCUP PO PRN (16:00)
[2021-08-06] MEDS: ZALEPLON 5 MG CAPSULE PO PRN (20:40)
[2021-08-07] MEDS: INSULIN LISPRO 100 UNIT/ML SUBCUT SCH ×5 (00:19→21:18)
[2021-08-07] MEDS: ALBUTEROL/IPRATROPIUM 3 ML NEB RESP TX SCH ×4 (00:41→19:44)
[2021-08-07] MEDS: CEFEPIME 1,000 MG in SODIUM CHLORIDE 0.9% 100 ML IV SCH ×4 (02:15→20:35)
[2021-08-07] MEDS: DEXTROSE 5% 1,000 ML IV SCH ×2 (05:40→05:41)
[2021-08-07 06:28] LABS: Albumin 2.1 G/DL (3.4-5.0); Bilirubin,Total 1.7 MG/DL (0.20-1.00); Calcium 7.5 MG/DL (8.5-10.1); Osmolality,Calculated 289.8 MOS/KG (273-304); Potassium 3.5 MMOL/L (3.5-5.1); Total Protein 4.9 G/DL (6.4-8.2)
[2021-08-07 06:33] LABS: Basophils % 0.3 % (0.0-0.8); Hemoglobin 10.6 GM/DL (12.0-16.0); Immature Granulocytes % 4.8 %; Immature Granulocytes Absolute 0.33 #; Lymphocytes # 0.3 10*3/uL (1.4-4.0); Lymphocytes % 3.9 % (21.3-54.2); Mean Corpuscular HGB Conc 29.4 GM/DL (32-36); Mean Corpuscular Volume 100.6 FL (87-102); Mean Platelet Volume 10.7 FL (9.6-12.0); Monocytes # 0.4 10*3/uL (0.11-0.8); Monocytes % 5.8 % (1.7-12.7); NRBC # 0.04 10*3/uL; Neutrophils % 85.2 % (38.7-73.9); Red Blood Count 3.58 MC/CUMM (3.8-5.5); Red Cell Distribution Width 15.9 % (9.3-17.3); White Blood Count 6.9 T/CUMM (4-12)
[2021-08-07 06:36] LABS: Platelet Count 47 T/CUMM (130-400)
[2021-08-07 06:41] LABS: Lymphocytes 12 % (20-55)
[2021-08-07 06:42] LABS: Acanthocytes Few; Platelet Estimate Decreased; Poikilocytosis Slight; Total Cells Counted 100
[2021-08-07] MEDS: LEVOTHYROXINE 100 MCG TABLET PO SCH (07:02)
[2021-08-07] MEDS: VITAMIN E 400 UNIT CAPSULE PO SCH ×2 (09:15→20:36)
[2021-08-07] MEDS: PANTOPRAZOLE 40 MG TABLET PO SCH ×2 (09:15→20:36)
[2021-08-07] MEDS: methylPREDNISolone SOD SUC 40 MG/1 ML VIAL IV SCH (09:22)
[2021-08-07] MEDS: ZALEPLON 5 MG CAPSULE PO PRN (20:41)
[2021-08-08] MEDS: ALBUTEROL/IPRATROPIUM 3 ML NEB RESP TX SCH ×4 (00:57→19:45)
[2021-08-08] MEDS: CEFEPIME 1,000 MG in SODIUM CHLORIDE 0.9% 100 ML IV SCH ×4 (02:27→21:04)
[2021-08-08 04:54] LABS: Basophils % 0.2 % (0.0-0.8); Eosinophils % 0.2 % (0.00-10.9); Hematocrit 31.4 VOL% (35.7-47.0); Hemoglobin 9.9 GM/DL (12.0-16.0); Immature Granulocytes % 5.8 %; Immature Granulocytes Absolute 0.32 #; Lymphocytes # 0.2 10*3/uL (1.4-4.0); Lymphocytes % 3.8 % (21.3-54.2); Mean Corpuscular HGB Conc 31.5 GM/DL (32-36); Mean Corpuscular Volume 92.6 FL (87-102); Mean Platelet Volume 11.5 FL (9.6-12.0); Monocytes # 0.3 10*3/uL (0.11-0.8); Monocytes % 5.6 % (1.7-12.7); NRBC # 0.03 10*3/uL; Neutrophils % 84.4 % (38.7-73.9); Platelet Count 53 T/CUMM (130-400); Red Blood Count 3.39 MC/CUMM (3.8-5.5); Red Cell Distribution Width 15.8 % (9.3-17.3); White Blood Count 5.5 T/CUMM (4-12)
[2021-08-08 05:12] LABS: Calcium 7.4 MG/DL (8.5-10.1); Potassium 3.6 MMOL/L (3.5-5.1); Total Protein 4.5 G/DL (6.4-8.2)
[2021-08-08 05:16] LABS: Lymphocytes 3 % (20-55); Platelet Estimate Decreased; Total Cells Counted 100
[2021-08-08 05:25] LABS: Osmolality,Calculated 292.6 MOS/KG (273-304)
[2021-08-08] MEDS: LEVOTHYROXINE 100 MCG TABLET PO SCH (06:33)
[2021-08-08] MEDS: INSULIN LISPRO 100 UNIT/ML SUBCUT SCH ×4 (08:00→21:04)
[2021-08-08] MEDS: VITAMIN E 400 UNIT CAPSULE PO SCH ×2 (09:10→21:22)
[2021-08-08] MEDS: methylPREDNISolone SOD SUC 40 MG/1 ML VIAL IV SCH (09:10)
[2021-08-08] MEDS: PANTOPRAZOLE 40 MG TABLET PO SCH ×2 (09:10→21:22)
[2021-08-08] MEDS: ZALEPLON 5 MG CAPSULE PO PRN (21:22)
[2021-08-09] MEDS: CEFEPIME 1,000 MG in SODIUM CHLORIDE 0.9% 100 ML IV SCH ×4 (02:29→21:50)
[2021-08-09] MEDS: LEVOTHYROXINE 100 MCG TABLET PO SCH (06:36)
[2021-08-09] MEDS ORDERED: IBUPROFEN 400 MG TABLET PO PRN (07:50)
[2021-08-09] MEDS: ALBUTEROL/IPRATROPIUM 3 ML NEB RESP TX SCH ×5 (07:53→23:30)
[2021-08-09] MEDS: INSULIN LISPRO 100 UNIT/ML SUBCUT SCH ×4 (08:00→21:50)
[2021-08-09] MEDS: VITAMIN E 400 UNIT CAPSULE PO SCH ×2 (08:55→21:51)
[2021-08-09] MEDS: LACTULOSE 20 GM/30 ML UDCUP PO SCH (08:55)
[2021-08-09] MEDS: PANTOPRAZOLE 40 MG TABLET PO SCH ×2 (08:55→21:51)
[2021-08-09] MEDS: methylPREDNISolone SOD SUC 40 MG/1 ML VIAL IV SCH (10:03)
[2021-08-09] MEDS: ZALEPLON 5 MG CAPSULE PO PRN (21:52)
[2021-08-10] MEDS: CEFEPIME 1,000 MG in SODIUM CHLORIDE 0.9% 100 ML IV SCH (01:30)
[2021-08-10 03:57] LABS: Basophils % 0.3 % (0.0-0.8); Eosinophils % 0.3 % (0.00-10.9); Hemoglobin 9.5 GM/DL (12.0-16.0); Immature Granulocytes % 4.5 %; Immature Granulocytes Absolute 0.15 #; Lymphocytes # 0.1 10*3/uL (1.4-4.0); Mean Corpuscular HGB Conc 31.7 GM/DL (32-36); Mean Corpuscular Volume 91.5 FL (87-102); Monocytes # 0.2 10*3/uL (0.11-0.8); Monocytes % 5.1 % (1.7-12.7); Neutrophils % 86.8 % (38.7-73.9); Red Blood Count 3.28 MC/CUMM (3.8-5.5); Red Cell Distribution Width 16.1 % (9.3-17.3); White Blood Count 3.3 T/CUMM (4-12)
[2021-08-10 04:01] LABS: Platelet Count 34 T/CUMM (130-400)
[2021-08-10 04:14] LABS: Albumin 1.8 G/DL (3.4-5.0); Bilirubin,Total 2.3 MG/DL (0.20-1.00); Calcium 7.2 MG/DL (8.5-10.1); Osmolality,Calculated 293.7 MOS/KG (273-304); Potassium 3.5 MMOL/L (3.5-5.1); Total Protein 4.3 G/DL (6.4-8.2)
[2021-08-10 04:42] LABS: Band Neutrophils 5 % (0-10); Lymphocytes 3 % (20-55); Metamyelocytes 2 %; Total Cells Counted 100
[2021-08-10 05:06] LABS: Hypochromia 1+; Platelet Estimate Decreased
[2021-08-10] MEDS: LEVOTHYROXINE 100 MCG TABLET PO SCH (06:27)
[2021-08-10] MEDS: ALBUTEROL/IPRATROPIUM 3 ML NEB RESP TX SCH ×4 (07:04→23:50)
[2021-08-10] MEDS: INSULIN LISPRO 100 UNIT/ML SUBCUT SCH ×4 (08:36→21:47)
[2021-08-10] MEDS: methylPREDNISolone SOD SUC 40 MG/1 ML VIAL IV SCH (08:37)
[2021-08-10] MEDS: INSULIN GLARGINE 100 UNIT/ML SUBCUT SCH (08:37)
[2021-08-10] MEDS: PANTOPRAZOLE 40 MG TABLET PO SCH ×2 (08:38→21:47)
[2021-08-10] MEDS: LACTULOSE 20 GM/30 ML UDCUP PO SCH ×3 (08:38→21:47)
[2021-08-10] MEDS: VITAMIN E 400 UNIT CAPSULE PO SCH ×2 (08:38→21:47)
[2021-08-10] MEDS: LEVOFLOXACIN 750 MG TABLET PO SCH (08:38)
[2021-08-10] MEDS: POTASSIUM CHLORIDE RIDER 20 MEQ/100 ML PREMIX IV PRN (08:52)
[2021-08-10] MEDS: POTASSIUM CHLORIDE RIDER 10 MEQ/100 ML PREMIX IV PRN (11:00)
[2021-08-10] MEDS ORDERED: ONDANSETRON 4 MG/2 ML VIAL IM PRN (18:26)
[2021-08-10] MEDS: ZALEPLON 5 MG CAPSULE PO PRN (21:47)
[2021-08-11 04:12] VITALS: BP 92/56
[2021-08-11 04:23] LABS: Basophils % 0.2 % (0.0-0.8); Eosinophils % 0.8 % (0.00-10.9); Hematocrit 29.1 VOL% (35.7-47.0); Hemoglobin 9.2 GM/DL (12.0-16.0); Immature Granulocytes % 1.9 %; Lymphocytes # 0.2 10*3/uL (1.4-4.0); Lymphocytes % 3.6 % (21.3-54.2); Mean Corpuscular HGB Conc 31.6 GM/DL (32-36); Mean Corpuscular Volume 91.5 FL (87-102); Mean Platelet Volume 11.6 FL (9.6-12.0); Monocytes # 0.4 10*3/uL (0.11-0.8); Monocytes % 7.3 % (1.7-12.7); Neutrophils % 86.2 % (38.7-73.9); Red Blood Count 3.18 MC/CUMM (3.8-5.5); Red Cell Distribution Width 16.5 % (9.3-17.3)
[2021-08-11 04:30] LABS: White Blood Count 5.2 T/CUMM (4-12)
[2021-08-11 04:31] LABS: Platelet Count 39 T/CUMM (130-400)
[2021-08-11 04:43] LABS: Bilirubin,Total 2.4 MG/DL (0.20-1.00); Calcium 7.3 MG/DL (8.5-10.1); Osmolality,Calculated 290.7 MOS/KG (273-304); Potassium 3.3 MMOL/L (3.5-5.1); Total Protein 4.3 G/DL (6.4-8.2)
[2021-08-11 04:44] LABS: Band Neutrophils 2 % (0-10); Lymphocytes 1 % (20-55); Total Cells Counted 100
[2021-08-11 04:45] LABS: Platelet Estimate Decreased
[2021-08-11] MEDS: LEVOTHYROXINE 100 MCG TABLET PO SCH (06:03)
[2021-08-11] MEDS: ALBUTEROL/IPRATROPIUM 3 ML NEB RESP TX SCH ×2 (06:55→12:32)
[2021-08-11] MEDS: INSULIN GLARGINE 100 UNIT/ML SUBCUT SCH (08:19)
[2021-08-11] MEDS: VITAMIN E 400 UNIT CAPSULE PO SCH (08:19)
[2021-08-11] MEDS: PANTOPRAZOLE 40 MG TABLET PO SCH (08:19)
[2021-08-11] MEDS: LACTULOSE 20 GM/30 ML UDCUP PO SCH (08:20)
[2021-08-11] MEDS: INSULIN LISPRO 100 UNIT/ML SUBCUT SCH ×2 (08:20→12:08)
[2021-08-11] MEDS: LEVOFLOXACIN 750 MG TABLET PO SCH (08:22)
[2021-08-11] MEDS ORDERED: RIFAXIMIN 550 MG TABLET PO SCH (09:30)
[2021-08-11] MEDS: POTASSIUM CHLORIDE 20 MEQ TABLET PO PRN ×2 (09:49→12:07)
[2021-08-11] MEDS ORDERED: FUROSEMIDE 40 MG TABLET PO ONE (11:38)
[2021-08-11] MEDS ORDERED: SPIRONOLACTONE 25 MG TABLET PO ONE (11:38)
[2021-08-11] MEDS ORDERED: GABAPENTIN 300 MG CAPSULE PO SCH (21:00)
[2021-08-12] MEDS ORDERED: PARoxetine 20 MG TABLET PO SCH (09:00)
== END 2021-08-11 01:05 | disposition home health service (06) | DRG 405 ==
LOC: EDBD → EDUNIT# → N.ED 01:05 → N.CC 02:10 → SUATTDRO 02:10 → N.CC 02:56
PROVIDERS: ADMIT Internal Medicine; ATTEND Family Medicine
PROC: EGDWEBL (ICD-10-PCS; 2021-07-31 08:35)
PROC: IRTIPSW (2021-07-31 14:55)

== ENCOUNTER 2021-08-14 13:54 | Inpatient (IN) ==
[2021-08-14] MEDS ORDERED: SODIUM CHLORIDE 0.9% 1,000 ML IV STA (14:12)
[2021-08-14 14:41] LABS: Basophils % 0.3 % (0.0-0.8); Eosinophils # 0.1 10*3/uL (0.0-0.87); Hematocrit 30.9 VOL% (35.7-47.0); Hemoglobin 9.9 GM/DL (12.0-16.0); Immature Granulocytes % 1.8 %; Immature Granulocytes Absolute 0.07 #; Lymphocytes # 0.5 10*3/uL (1.4-4.0); Lymphocytes % 11.7 % (21.3-54.2); Mean Corpuscular Volume 91.4 FL (87-102); Mean Platelet Volume 11.2 FL (9.6-12.0); Monocytes # 0.2 10*3/uL (0.11-0.8); Monocytes % 5.6 % (1.7-12.7); Neutrophils % 78.6 % (38.7-73.9); Platelet Count 63 T/CUMM (130-400); Red Blood Count 3.38 MC/CUMM (3.8-5.5); White Blood Count 3.9 T/CUMM (4-12)
[2021-08-14 14:56] LABS: Alanine Aminotransferase 41 U/L (13-56); Albumin 2.2 G/DL (3.4-5.0); Alkaline Phosphatase 122 U/L (45-117); Aspartate Amino Transferase 43 U/L (0-37); Blood Urea Nitrogen 6 MG/DL (7-18); Calcium 7.6 MG/DL (8.5-10.1); Carbon Dioxide 25 MMOL/L (21-32); Chloride 114 MMOL/L (98-107); Glucose 144 MG/DL (74-106); Osmolality,Calculated 288.7 MOS/KG (273-304); Potassium 3.8 MMOL/L (3.5-5.1); Sodium 145 MMOL/L (136-145); Total Protein 4.9 G/DL (6.4-8.2)
[2021-08-14] MEDS ORDERED: LACTULOSE 20 GM/30 ML UDCUP PO STA (15:03)
[2021-08-14 15:16] LABS: Bilirubin,Urine Small mg/dL (Negative); Glucose,Urine (UA) 100 mg/dL (Negative); Ketones,Urine Negative (Negative); Nitrite,Urine Negative (Negative); Protein,Urine Negative (Negative); Urine Appearance Clear (Clear); Urine Color Yellow (Yellow); Urine Specific Gravity >= 1.030 (1.001-1.035)
[2021-08-14 15:17] LABS: Blood, Urine Negative (Negative); Urine Urobilinogen >= 8.0 eU/dL (<2.0)
[2021-08-14 15:19] LABS: Bacteria,Urine Occasional /HPF (Few); Mucus,Urine Occasional /LPF (Occasional)
[2021-08-14 15:32] LABS: Band Neutrophils 3 % (0-10); Eosinophils 3 % (0-10); Lymphocytes 5 % (20-55); Total Cells Counted 100
[2021-08-14 15:33] LABS: Platelet Estimate Decreased
[2021-08-14 15:42] LABS: Barbiturates Screen,Urine Negative (Negative); Benzodiazepines Screen,Urine Negative (Negative); Cannabinoid Screen,Urine Negative (Negative); Opiate Screen,Urine Positive (Negative); Phencyclidine Screen,Urine Negative (Negative)
[2021-08-14] MEDS ORDERED: ONDANSETRON 4 MG/2 ML VIAL IV PRN (15:42)
[2021-08-14] MEDS ORDERED: GLUCAGON 1 MG VIAL IM PRN (15:42)
[2021-08-14] MEDS ORDERED: ACETAMINOPHEN 325 MG TABLET PO PRN (15:42)
[2021-08-14] MEDS ORDERED: DEXTROSE 10% 250 ML BAG IV PRN (15:47)
[2021-08-14] MEDS ORDERED: ALBUTEROL/IPRATROPIUM 3 ML NEB RESP TX PRN (16:10)
[2021-08-14] MEDS: INSULIN LISPRO 100 UNIT/ML SUBCUT SCH ×2 (17:03→21:25)
[2021-08-14] MEDS: LACTULOSE 20 GM/30 ML UDCUP PO SCH ×2 (17:03→21:24)
[2021-08-14] MEDS: RIFAXIMIN 550 MG TABLET PO SCH (21:25)
[2021-08-14] MEDS: SODIUM CHLORIDE 0.9% 1,000 ML IV SCH (21:31)
[2021-08-14] MEDS ORDERED: diphenhydrAMINE CAP 25 MG CAPSULE PO PRN (23:39)
[2021-08-15] MEDS: LACTULOSE 20 GM/30 ML UDCUP PO SCH ×4 (05:09→21:10)
[2021-08-15] MEDS: IBUPROFEN 600 MG TABLET PO PRN ×2 (05:13→15:57)
[2021-08-15 07:38] LABS: Basophils % 0.3 % (0.0-0.8); Eosinophils # 0.1 10*3/uL (0.0-0.87); Eosinophils % 2.4 % (0.00-10.9); Hematocrit 29.6 VOL% (35.7-47.0); Hemoglobin 9.4 GM/DL (12.0-16.0); Immature Granulocytes % 2.1 %; Immature Granulocytes Absolute 0.06 #; Lymphocytes # 0.5 10*3/uL (1.4-4.0); Lymphocytes % 16.4 % (21.3-54.2); Mean Corpuscular HGB Conc 31.8 GM/DL (32-36); Mean Corpuscular Volume 92.5 FL (87-102); Mean Platelet Volume 11.2 FL (9.6-12.0); Monocytes # 0.3 10*3/uL (0.11-0.8); Monocytes % 9.9 % (1.7-12.7); Neutrophils % 68.9 % (38.7-73.9); Red Cell Distribution Width 19.4 % (9.3-17.3); White Blood Count 2.9 T/CUMM (4-12)
[2021-08-15 07:39] LABS: Platelet Count 58 T/CUMM (130-400)
[2021-08-15 07:55] LABS: Albumin 2.4 G/DL (3.4-5.0); Bilirubin,Total 3.5 MG/DL (0.20-1.00); Calcium 7.7 MG/DL (8.5-10.1); Potassium 3.6 MMOL/L (3.5-5.1); Total Protein 5.3 G/DL (6.4-8.2)
[2021-08-15 08:08] LABS: Anisocytosis 1+; Macrocytosis 1+; Platelet Estimate Decreased
[2021-08-15] MEDS: RIFAXIMIN 550 MG TABLET PO SCH ×2 (09:19→20:40)
[2021-08-15] MEDS: PANTOPRAZOLE 40 MG TABLET PO SCH (09:20)
[2021-08-15] MEDS: LEVOFLOXACIN 750 MG TABLET PO SCH (09:20)
[2021-08-15] MEDS: MIDODRINE 5 MG TABLET PO SCH ×2 (09:24→20:40)
[2021-08-15] MEDS: INSULIN LISPRO 100 UNIT/ML SUBCUT SCH ×4 (09:24→21:10)
[2021-08-15] MEDS: SODIUM CHLORIDE 0.9% 1,000 ML IV SCH (15:47)
[2021-08-16] MEDS: LACTULOSE 20 GM/30 ML UDCUP PO SCH ×2 (04:30→11:19)
[2021-08-16 06:25] LABS: Eosinophils # 0.1 10*3/uL (0.0-0.87); Eosinophils % 3.2 % (0.00-10.9); Hemoglobin 8.8 GM/DL (12.0-16.0); Immature Granulocytes % 2.1 %; Immature Granulocytes Absolute 0.06 #; Lymphocytes # 0.4 10*3/uL (1.4-4.0); Lymphocytes % 15.5 % (21.3-54.2); Mean Corpuscular HGB Conc 31.4 GM/DL (32-36); Mean Corpuscular Volume 93.3 FL (87-102); Mean Platelet Volume 10.7 FL (9.6-12.0); Monocytes # 0.3 10*3/uL (0.11-0.8); Monocytes % 9.9 % (1.7-12.7); Neutrophils % 69.3 % (38.7-73.9); Platelet Count 59 T/CUMM (130-400); Red Cell Distribution Width 19.7 % (9.3-17.3); White Blood Count 2.8 T/CUMM (4-12)
[2021-08-16] MEDS ORDERED: LEVOTHYROXINE 200 MCG TABLET PO SCH (06:30)
[2021-08-16 06:49] LABS: Albumin 2.1 G/DL (3.4-5.0); Bilirubin,Total 2.6 MG/DL (0.20-1.00); Calcium 7.5 MG/DL (8.5-10.1); Potassium 3.5 MMOL/L (3.5-5.1); Total Protein 4.9 G/DL (6.4-8.2)
[2021-08-16] MEDS: INSULIN LISPRO 100 UNIT/ML SUBCUT SCH ×2 (07:30→12:04)
[2021-08-16 07:42] LABS: Platelet Estimate Decreased
[2021-08-16] MEDS: MIDODRINE 5 MG TABLET PO SCH (08:35)
[2021-08-16] MEDS: RIFAXIMIN 550 MG TABLET PO SCH (08:36)
[2021-08-16] MEDS: LEVOFLOXACIN 750 MG TABLET PO SCH (08:36)
[2021-08-16] MEDS: PANTOPRAZOLE 40 MG TABLET PO SCH (08:37)
[2021-08-16] MEDS ORDERED: PARoxetine 20 MG TABLET PO SCH (09:00)
[2021-08-16] MEDS ORDERED: CHOLECALCIFEROL 1,000 UNIT TABLET PO SCH (09:00)
[2021-08-16] MEDS ORDERED: FUROSEMIDE 40 MG/4 ML VIAL IV ONE (09:49)
[2021-08-16] MEDS ORDERED: MIDODRINE 5 MG TABLET PO ONE (09:49)
[2021-08-16 13:10] VITALS: BP 113/49
[2021-08-16] MEDS ORDERED: MIDODRINE 5 MG TABLET PO SCH (21:00)
== END 2021-08-16 13:47 | disposition home or self-care (01) | DRG 441 ==
LOC: N.ED 13:54 → SUATTDRO 15:42 → N.5E 15:42
PROVIDERS: ADMIT Internal Medicine; ATTEND Internal Medicine

== ENCOUNTER 2021-08-20 13:45 | Observation (INO) ==
[2021-08-20] MEDS ORDERED: SODIUM CHLORIDE 0.9% 1,000 ML IV STA (14:43)
[2021-08-20 15:08] LABS: Basophils % 0.7 % (0.0-0.8); Eosinophils # 0.1 10*3/uL (0.0-0.87); Eosinophils % 2.6 % (0.00-10.9); Hemoglobin 10.8 GM/DL (12.0-16.0); Immature Granulocytes % 0.7 %; Immature Granulocytes Absolute 0.02 #; Lymphocytes # 0.4 10*3/uL (1.4-4.0); Mean Corpuscular HGB Conc 30.9 GM/DL (32-36); Mean Corpuscular Volume 92.3 FL (87-102); Mean Platelet Volume 10.1 FL (9.6-12.0); Monocytes # 0.3 10*3/uL (0.11-0.8); Monocytes % 10.6 % (1.7-12.7); Neutrophils % 70.4 % (38.7-73.9); Platelet Count 74 T/CUMM (130-400); Red Blood Count 3.79 MC/CUMM (3.8-5.5); Red Cell Distribution Width 19.4 % (9.3-17.3); White Blood Count 2.7 T/CUMM (4-12)
[2021-08-20 15:17] LABS: INR 1.1; PT Patient Result 12.5 SECS (10.5-12.0); Partial Thromboplastin Time 85.7 SECS (23.7-32.9)
[2021-08-20 15:23] LABS: Albumin 2.4 G/DL (3.4-5.0); Bilirubin,Total 2.6 MG/DL (0.20-1.00); Calcium 8.4 MG/DL (8.5-10.1); Osmolality,Calculated 282.3 MOS/KG (273-304); Potassium 4.3 MMOL/L (3.5-5.1); Total Protein 6.7 G/DL (6.4-8.2)
[2021-08-20] MEDS ORDERED: LACTULOSE 20 GM/30 ML UDCUP PO STA (15:37)
[2021-08-20] MEDS ORDERED: ONDANSETRON 4 MG/2 ML VIAL IV PRN (16:16)
[2021-08-20] MEDS ORDERED: GLUCAGON 1 MG VIAL IM PRN (16:16)
[2021-08-20] MEDS ORDERED: DEXTROSE 10% 250 ML BAG IV PRN (16:20)
[2021-08-20] MEDS ORDERED: DEXTROSE 50% 25 GM/50 ML VIAL IV PRN (19:10)
[2021-08-20] MEDS: LACTULOSE 20 GM/30 ML UDCUP PO SCH (21:28)
[2021-08-20] MEDS: RIFAXIMIN 550 MG TABLET PO SCH (21:28)
[2021-08-20] MEDS: MIDODRINE 5 MG TABLET PO SCH (21:29)
[2021-08-21 04:45] LABS: Basophils % 0.7 % (0.0-0.8); Eosinophils # 0.1 10*3/uL (0.0-0.87); Eosinophils % 3.1 % (0.00-10.9); Hematocrit 31.8 VOL% (35.7-47.0); Immature Granulocytes % 0.3 %; Immature Granulocytes Absolute 0.01 #; Lymphocytes # 0.6 10*3/uL (1.4-4.0); Lymphocytes % 19.7 % (21.3-54.2); Mean Corpuscular HGB Conc 31.4 GM/DL (32-36); Mean Corpuscular Volume 91.9 FL (87-102); Mean Platelet Volume 9.9 FL (9.6-12.0); Monocytes # 0.4 10*3/uL (0.11-0.8); Monocytes % 12.5 % (1.7-12.7); Neutrophils % 63.7 % (38.7-73.9); Platelet Count 66 T/CUMM (130-400); Red Blood Count 3.46 MC/CUMM (3.8-5.5); Red Cell Distribution Width 19.4 % (9.3-17.3); White Blood Count 2.9 T/CUMM (4-12)
[2021-08-21 05:05] LABS: Platelet Estimate Decreased
[2021-08-21 05:09] LABS: Albumin 2.1 G/DL (3.4-5.0); Bilirubin,Total 2.2 MG/DL (0.20-1.00); Calcium 8.2 MG/DL (8.5-10.1); Osmolality,Calculated 281.3 MOS/KG (273-304); Potassium 4.3 MMOL/L (3.5-5.1); Total Protein 5.8 G/DL (6.4-8.2)
[2021-08-21] MEDS ORDERED: LEVOTHYROXINE 200 MCG TABLET PO SCH (06:00)
[2021-08-21 07:41] VITALS: BP 95/54
[2021-08-21] MEDS ORDERED: CHOLECALCIFEROL 1,000 UNIT TABLET PO SCH (09:00)
[2021-08-21] MEDS ORDERED: SPIRONOLACTONE 25 MG TABLET PO SCH (09:00)
[2021-08-21] MEDS ORDERED: IBUPROFEN 400 MG TABLET PO SCH (09:00)
[2021-08-21] MEDS: RIFAXIMIN 550 MG TABLET PO SCH (09:37)
[2021-08-21] MEDS: LACTULOSE 20 GM/30 ML UDCUP PO SCH (09:37)
[2021-08-21] MEDS: MIDODRINE 5 MG TABLET PO SCH (09:37)
== END 2021-08-21 11:26 | disposition home or self-care (01) ==
LOC: N.EDINP 13:45 → N.ED 13:45 → N.3E 16:57
PROVIDERS: ADMIT Internal Medicine Geriatric Medicine; ATTEND Internal Medicine Geriatric Medicine